=== PATIENT | female | born 2000 | race Caucasian/White ===

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

== ENCOUNTER 2019-07-20 17:22 | Emergency (ER) | payer OTHER ==
[2019-07-20 17:33] VITALS: BP 107/72
== END 2019-07-20 18:41 | disposition left against medical advice (07) ==
LOC: ED 17:22
DX: S69.91XA Unspecified injury of right wrist, hand and finger(s), initial encounter (principal); Z53.21 Procedure and treatment not carried out due to patient leaving prior to being seen by health care provider; X58.XXXA Exposure to other specified factors, initial encounter; Y92.9 Unspecified place or not applicable
CPT/HCPCS: 99282

== ENCOUNTER 2019-07-20 19:18 | Emergency (ER) | payer OTHER ==
--- NOTE | 2019-07-20 20:48 | ED ---
Upper Extremity Pain - HPI Summary HPI Summary: 19-year-old female presents with right wrist injury. She fell on her wrist. Has had issues with the wrist for past 2 years. xray was negative two years ago and did PT. she denies any numbness or tingling. No other injury. No elbow pain. Has no medical conditions. - History of Current Complaint Chief Complaint: EDExtremityUpper Stated Complaint: WRIST INJURY RIGHT Time Seen by Provider: 07/20/19 20:42 - Allergies/Home Medications Allergies/Adverse Reactions: Allergies Allergy/AdvReac Type Severity Reaction Status Date / Time No Known Allergies Allergy Verified 07/20/19 17:32 Home Medications: Home Medications Amoxicillin 500 mg PO TID 7 Days #21 capsule 12/12/17 [Rx] PMH/Surg Hx/FS Hx/Imm Hx Endocrine/Hematology History: Denies: Hx Anticoagulant Therapy Cardiovascular History: Denies: Hx Cardiac Arrest Respiratory History: Denies: Hx Chronic Obstructive Pulmonary Disease (COPD) History: Denies: Hx Dialysis Sensory History: Denies: Hx Deafness Infectious Disease History: No Infectious Disease History: Denies: Traveled Outside the [place] in Last 30 Days - Family History Known Family History: Positive: Non-Contributory - Social History Alcohol Use: None Substance Use Type: Reports: None Smoking Status (MU): Never Smoked Tobacco Review of Systems Negative: Fever Negative: Chest Pain Negative: Shortness Of Breath Positive: Myalgia - right wrist pain All Other Systems Reviewed And Are Negative: Yes Physical Exam Triage Information Reviewed: Yes Vital Signs On Initial Exam: Initial Vitals Temp Pulse Resp BP Pulse Ox 99.2 F 80 16 123/88 98 07/20/19 19:24 07/20/19 19:24 07/20/19 19:24 07/20/19 19:24 07/20/19 19:24 Vital Signs Reviewed: Yes Appearance: Positive: Well-Appearing Skin: Positive: Warm, Dry Head/Face: Positive: Normal Head/Face Inspection Eyes: Positive: Normal, Conjunctiva Clear ENT: Positive: Pharynx normal Respiratory/Lung Sounds: Positive: Clear to Auscultation, Breath Sounds Present Cardiovascular: Positive: Normal, RRR Musculoskeletal: Positive: Limited @ - right wrist, Other - tenderness right wrist, neg snuff box tenderness, good pulses Neurological: Positive: Normal Psychiatric: Positive: Normal Procedures - Sedation Patient Received Moderate/Deep Sedation with Procedure: No Diagnostics - Vital Signs Vital Signs Temp Pulse Resp BP Pulse Ox 07/20/19 19:24 99.2 F 80 16 123/88 98 - Laboratory Lab Statement: Any lab studies that have been ordered have been reviewed, and results considered in the medical decision making process. Course/Dx - Course Course Of Treatment: 19-year-old female presents with right wrist injury. She fell on her wrist. Has had issues with the wrist for past 2 years. xray was negative two years ago and did PT. she denies any numbness or tingling. No other injury. No elbow pain. Has no medical conditions. On exam has tenderness over right wrist. Negative snuffbox tenderness. Neurovascularly intact. X-ray from previous visit where left without being showed negative x- ray. Gave Ricky. told follow up with ortho if no improvement. Patient understands agrees the plan. - Diagnoses Differential Diagnosis/HQI/PQRI: Positive: Fracture (Closed), Strain, Sprain Provider Diagnoses: Right wrist pain Discharge ED - Sign-Out/Discharge Documenting (check all that apply): Patient Departure - Discharge Plan Condition: Good Disposition: HOME Patient Education Materials: R.I.C.E. Treatment (ED) Forms: *Work Release Referrals: Alireza Patel MD [Medical Doctor] - Additional Instructions: Take Tylenol or ibuprofen every 6 hours as needed for pain Apply ice, rest, elevate Keep ricky on area as needed Follow up with ortho if no improvement Return to ED if develop any new or worsening symptoms - Billing Disposition and Condition Condition: GOOD Disposition: Home
[2019-07-20 21:06] VITALS: BP 116/90
== END 2019-07-20 21:05 | disposition home or self-care (01) ==
LOC: ED 19:18
DX: M25.531 Pain in right wrist (principal)
CPT/HCPCS: 99282